=== PATIENT | female | born 1965 | race Caucasian/White ===

== ENCOUNTER 2016-12-13 10:54 | Emergency (ER) | payer BC ==
[2016-12-13] MEDS ORDERED: Sodium Chloride 0.9% 10 ML Syringe FLUSH PRN (11:03)
[2016-12-13 11:06] VITALS: BP 111/65
[2016-12-13] MEDS ORDERED: Aspirin 81 MG Tab.Chew PO ONE (11:18)
[2016-12-13] MEDS ORDERED: Clopidogrel 75 MG Tab PO ONE (12:06)
[2016-12-13] MEDS ORDERED: Heparin Sodium 5,000 Units/ML Vial IVPUSH ONE (12:07)
[2016-12-13] MEDS ORDERED: Heparin Sodium/D5W 25,000 UNITS/500 ML BAG IV SCH (12:15)
--- NOTE | 2016-12-13 12:36 | EDM.PDOC ---
Scribed by Paz Martin 12/13/16 1227 for Osvaldo Lott MD ED HPI GENERAL MEDICAL PROBLEM - General Chief Complaint: Cardiovascular Problem Stated Complaint: HEART RACING, CHEST PAIN Time Seen by Provider: 12/13/16 11:10 Source of Information: Reports: Patient, RN, RN Notes Reviewed History Limitations: Reports: No Limitations - History of Present Illness INITIAL COMMENTS - FREE TEXT/NARRATIVE: Arrives by POV with complaint of onset of upper left chest pain that radiates to left shoulder and upper arm early this morning. Denies SOB, nausea, vomiting , palpitations or edema. Patient reports she felt well until her father called her and she became anxious. Patient reports that she had a nonSTEMI heart attack in October of this year and got a stent in her heart. She has been taking all of her medication as prescribed, including aspirin 81mg and Plavix 75mg. Describes current pain as a sharp ache. Rates pain 4/10. Nothing makes the pain better or worse. Onset: Today Location: Reports: Chest Quality: Reports: Ache Severity: Moderate Improves with: Reports: None Worsens with: Reports: None Associated Symptoms: Reports: No Other Symptoms Chest Pain Score (Numeric/FACES): 3 - Related Data Allergies Allergy/AdvReac Type Severity Reaction Status Date / Time No Known Allergies Allergy Verified 12/13/16 11:05 Home Meds: Home Meds Aspirin 81 mg PO DAILY 10/02/16 [History] Canagliflozin [Invokana] 300 mg PO DAILY 10/02/16 [History] Citalopram Hydrobromide [Celexa] 40 mg PO DAILY 10/02/16 [History] Lisinopril 5 mg PO DAILY 10/02/16 [History] Nitroglycerin [Nitrostat] 0.4 mg SL ASDIRECTED PRN 10/02/16 [History] Norethindrone Acetate [Aygestin] 5 mg PO DAILY 10/02/16 [History] Rosuvastatin [Crestor] 10 mg PO DAILY 10/02/16 [History] Estradiol [Vagifem] 10 mcg PO ASDIRECTED 10/22/16 [History] Omeprazole 20 mg PO DAILY 10/22/16 [History] sitaGLIPtin Phos/Metformin HCl [Janumet 50-1,000 MG] 1 tab PO BID 10/22/16 [ History] Clopidogrel [Plavix] 75 mg PO DAILY 11/18/16 [History] Carvedilol [Coreg] 3.125 mg PO BID 12/02/16 [History] Past Medical History HEENT History: Reports: Impaired Vision Cardiovascular History: Reports: Other (See Below) Other Cardiovascular History: angina Respiratory History: Reports: None Gastrointestinal History: Reports: GERD, Other (See Below) Other Gastrointestinal History: increased liver enzymes Genitourinary History: Reports: None [employer] History: Reports: , Other (See Below) Other OB/BYN History: irregular menses, spontaneous vaginal delivery Musculoskeletal History: Reports: Other (See Below) Other Musculoskeletal History: lumbar back pain, R knee pain Neurological History: Reports: Vertigo Psychiatric History: Reports: Anxiety, Depression, Mood Swings Endocrine/Metabolic History: Reports: Diabetes, Type II, Other (See Below) Other Endocrine/Metabolic History: axillary lymphadenopathy Hematologic History: Reports: Anemia, Iron Deficiency Immunologic History: Reports: None Oncologic (Cancer) History: Reports: None Dermatologic History: Reports: None - Past Surgical History GI Surgical History: Reports: None, Other (See Below) - Past Imaging History Past Imaging History: Reports: None Social & Family History - Family History Family Medical History: Noncontributory - Tobacco Use Smoking Status *Q: Never Smoker - Caffeine Use Caffeine Use: Reports: Soda, Tea - Recreational Drug Use Recreational Drug Use: No Drug Use in Last 12 Months: No ED ROS GENERAL - Review of Systems Review Of Systems: ROS reveals no pertinent complaints other than HPI. ED EXAM, GENERAL - Physical Exam Exam: See Below Exam Limited By: No Limitations General Appearance: Anxious Eye Exam: Bilateral Eye: Normal Inspection Ears: Normal External Exam, Normal Canal, Hearing Grossly Normal, Normal TMs Nose: Normal Inspection, Normal Mucosa, No Blood Throat/Mouth: Normal Inspection, Normal Lips, Normal Teeth, Normal Gums, Normal Oropharynx, Normal Voice, No Airway Compromise Head: Atraumatic, Normocephalic Neck: Normal Inspection, Supple, Non-Tender, Full Range of Motion Respiratory/Chest: No Respiratory Distress, Lungs Clear, Normal Breath Sounds, No Accessory Muscle Use, Chest Non-Tender Cardiovascular: Normal Peripheral Pulses, Regular Rate, Rhythm, No Edema, No Gallop, No JVD, No Murmur, No Rub GI/Abdominal: Normal Bowel Sounds, Soft, Non-Tender, No Organomegaly, No Distention, No Abnormal Bruit, No Mass (Female) Exam: Deferred Rectal (Female) Exam: Deferred Back Exam: Normal Inspection, Full Range of Motion, NT Extremities: Other (No edema. No calf tenderness. ) Neurological: Alert, Oriented, CN II-XII Intact, Normal Cognition, Normal Gait, Normal Reflexes, No Motor/Sensory Deficits Psychiatric: Anxious Skin Exam: Warm, Dry, Intact, Normal Color, No Rash Lymphatic: No Adenopathy EKG INTERPRETATION EKG Date: 12/13/16 Time: 11:00 Rhythm: Other (sinus rhythm) Rate (Beats/Min): 94 [place]: Normal P-Wave: Present QRS: Normal ST-T: Other (Slight ST segment depression in lateral leads.) QT: Normal Comparison: No Change (from EKG dated 10/22/16.) Course - Vital Signs Last Recorded V/S: Last Vital Signs Temp 35.8 C 12/13/16 11:00 Pulse 100 12/13/16 11:00 Resp 16 12/13/16 11:00 BP 111/65 12/13/16 11:00 Pulse Ox 100 12/13/16 11:00 - Orders/Labs/Meds Orders: Active Orders 24 hr Category Date Time Status EKG 12 Lead [EKG Documentation Completion] [RC] STAT Care 12/13/16 11:03 Active Peripheral IV Care [RC] . DIRECTED Care 12/13/16 11:04 Active Heparin Sodium/D5W [Heparin 25,000 Units in D5W 500 ML] Med 12/13/16 12:15 Active 25,000 units in 500 ml IV TITRATE Sodium Chloride 0.9% [Saline Flush] Med 12/13/16 11:03 Active 10 ml FLUSH ASDIRECTED PRN Peripheral IV Insertion Adult [OM.PC] Stat Oth 12/13/16 11:03 Ordered Medication Orders Heparin Sodium/Dextrose (Heparin 25,000 Units In D5w 500 Ml) 25,000 units in 500 mls @ 16.874 mls/hr IV TITRATE SHERRY; 12 UNITS/KG/HR PRN Reason: Protocol Sodium Chloride (Saline Flush) 10 ml FLUSH ASDIRECTED PRN PRN Reason: Keep Vein Open Last Admin: 12/13/16 12:23 Dose: 10 ml Labs: Laboratory Tests 07/07/0112/13/16 12/13/16 Range/Units 11:27 11:27 11:27 WBC 8.8 (5.0-10.0) 10^3/uL RBC 3.60 L (4.2-5.4) 10^6/uL Hgb 8.9 L (12.0-16.0) g/dL Hct 28.7 L (37.0-47.0) % MCV 79.7 L (80-100) fL MCH 24.7 L (27.0-34.0) pg MCHC 31.0 L (33.0-35.0) g/dL Plt Count 265 (150-450) 10^3/uL Neut % (Auto) 72.5 (42.2-75.2) % Lymph % (Auto) 16.4 L (20.5-50.1) % [place] % (Auto) 8.8 H (2-8) % Eos % (Auto) 2.1 (1.0-3.0) % Baso % (Auto) 0.2 (0.0-1.0) % PT 10.5 (9.0-12.0) SEC INR 1.0 (0.9-1.2) APTT 24.9 (22.0-34.0) SEC D-Dimer, Quantitative (0-400) ng/mL Sodium 138 (135-145) mmol/L Potassium 4.5 (3.6-5.0) mmol/L Chloride 102 (101-111) mmol/L Carbon Dioxide 21.0 (21.0-31.0) mmol/L Anion Gap 19.5 BUN 21 H (7-18) mg/dL Creatinine 1.1 (0.6-1.3) mg/dL Est Cr Clr Drug Dosing 50.05 mL/min Estimated GFR (MDRD) 52 BUN/Creatinine Ratio 19.09 Glucose 178 H (74-105) mg/dL Calcium 9.2 (8.4-10.2) mg/dl Total Bilirubin 0.5 (0.2-1.0) mg/dL AST 25 (10-42) IU/L ALT 12 (10-60) IU/L Alkaline Phosphatase 48 (42-121) IU/L Troponin I 0.08 H* (0.00-0.02) ng/ml B-Natriuretic Peptide 191 H (0-100) pg/ml Total Protein 6.6 L (6.7-8.2) g/dl Albumin 3.7 (3.2-5.5) g/dl Globulin 2.9 Albumin/Globulin Ratio 1.28 Amylase 63 (28-100) U/L Lipase 90 H (22-51) U/L 12/13/16 Range/Units 11:27 WBC (5.0-10.0) 10^3/uL RBC (4.2-5.4) 10^6/uL Hgb (12.0-16.0) g/dL Hct (37.0-47.0) % MCV (80-100) fL MCH (27.0-34.0) pg MCHC (33.0-35.0) g/dL Plt Count (150-450) 10^3/uL Neut % (Auto) (42.2-75.2) % Lymph % (Auto) (20.5-50.1) % [place] % (Auto) (2-8) % Eos % (Auto) (1.0-3.0) % Baso % (Auto) (0.0-1.0) % PT (9.0-12.0) SEC INR (0.9-1.2) APTT (22.0-34.0) SEC D-Dimer, Quantitative 927 H (0-400) ng/mL Sodium (135-145) mmol/L Potassium (3.6-5.0) mmol/L Chloride (101-111) mmol/L Carbon Dioxide (21.0-31.0) mmol/L Anion Gap BUN (7-18) mg/dL Creatinine (0.6-1.3) mg/dL Est Cr Clr Drug Dosing mL/min Estimated GFR (MDRD) BUN/Creatinine Ratio Glucose (74-105) mg/dL Calcium (8.4-10.2) mg/dl Total Bilirubin (0.2-1.0) mg/dL AST (10-42) IU/L ALT (10-60) IU/L Alkaline Phosphatase (42-121) IU/L Troponin I (0.00-0.02) ng/ml B-Natriuretic Peptide (0-100) pg/ml Total Protein (6.7-8.2) g/dl Albumin (3.2-5.5) g/dl Globulin Albumin/Globulin Ratio Amylase (28-100) U/L Lipase (22-51) U/L Meds: Medications Generic Name Dose Route Start Last Admin Trade Name Freq PRN Reason Stop Dose Admin Heparin Sodium/Dextrose 25,000 units in 500 mls @ 16.874 mls/hr 12/13/16 12: 15 Heparin 25,000 Units In D5w 500 Ml IV TITRATE SHERRY Protocol 12 UNITS/KG/HR Sodium Chloride 10 ml 12/13/16 11:03 12/13/16 12:23 Saline Flush FLUSH 10 ml ASDIRECTED PRN Administration Keep Vein Open Discontinued Medications Generic Name Dose Route Start Last Admin Trade Name Freq PRN Reason Stop Dose Admin Aspirin 243 mg 12/13/16 11:18 12/13/16 11:25 Aspirin PO 12/13/16 11:19 243 mg ONETIME ONE Administration Clopidogrel Bisulfate 225 mg 12/13/16 12:06 12/13/16 12:27 Plavix PO 12/13/16 12:07 225 mg ONETIME ONE Administration Heparin Sodium (Porcine) 4,500 units 12/13/16 12:07 12/13/16 12:29 Heparin Sodium IVPUSH 12/13/16 12:08 4,500 units ONETIME ONE Administration - Radiology Interpretation Free Text/Narrative:: Chest x-ray: Per rad report shows no acute process. - Re-Assessments/Exams Free Text/Narrative Re-Assessment/Exam: 12/13/16 11:52 Patient given aspirin 81mg 3 tabs po x1. Nitroglycerin held due to BP 104/55. Departure - Departure Time of Disposition: 12:21 Disposition: DC/Tfer to Acute Hospital 02 Reason for Transfer *Q: Primary PCI Indicated Condition: Serious Clinical Impression: Non-STEMI (non-ST elevated myocardial infarction), Chronic anemia Referrals: PCP,Not In Area [Primary Care Provider] - Forms: ED Department Discharge, Interfacility Transfer JEANNA - My Orders Last 24 Hours: My Active Orders 12/13/16 11:03 EKG 12 Lead [EKG Documentation Completion] [RC] STAT Sodium Chloride 0.9% [Saline Flush] 10 ml FLUSH ASDIRECTED PRN Peripheral IV Insertion Adult [OM.PC] Stat 12/13/16 11:04 Peripheral IV Care [RC] . DIRECTED 12/13/16 12:15 Heparin Sodium/D5W [Heparin 25,000 Units in D5W 500 ML] 25,000 units in 500 ml IV TITRATE - Assessment/Plan Last 24 Hours: My Active Orders 12/13/16 11:03 EKG 12 Lead [EKG Documentation Completion] [RC] STAT Sodium Chloride 0.9% [Saline Flush] 10 ml FLUSH ASDIRECTED PRN Peripheral IV Insertion Adult [OM.PC] Stat 12/13/16 11:04 Peripheral IV Care [RC] . DIRECTED 12/13/16 12:15 Heparin Sodium/D5W [Heparin 25,000 Units in D5W 500 ML] 25,000 units in 500 ml IV TITRATE I have read and agree with the documentation that has been completed regarding this visit. By signing this record, I attest that the documentation was completed in my physical presence and is an accurate record of the encounter.
--- NOTE | 2017-01-26 10:04 | EKG ---
12/13/2016- WESLEY JAMES - This is a 12-lead standard EKG showing sinus rhythm with a ventricular rate of 94 beats per minute. Normal [place] interval. Normal QRS duration. Normal axis. No significant ST-T changes. [facility] /[id number]
== END 2016-12-13 13:10 ==
LOC: DL.ED 10:54
DX: I21.4 Non-ST elevation (NSTEMI) myocardial infarction (principal); D64.9 Anemia, unspecified; H54.7 Unspecified visual loss; K21.9 Gastro-esophageal reflux disease without esophagitis; F41.9 Anxiety disorder, unspecified; F32.9 Major depressive disorder, single episode, unspecified; E11.9 Type 2 diabetes mellitus without complications; Z86.2 Personal history of diseases of the blood and blood-forming organs and certain disorders involving the immune mechanism; Z79.82 Long term (current) use of aspirin; Z79.899 Other long term (current) drug therapy
CPT/HCPCS: 36415; 71010; 80053; 82150; 83690; 83880; 84484; 85025; 85379; 85610; 85730; 93005; 96365; 96376; 99285; A9270; J1644; J7050